=== PATIENT | male | born 1940 | race Caucasian/White ===

== ENCOUNTER 2020-03-11 21:40 | Emergency (ER) | payer MEDICARE ==
--- NOTE | 2020-03-11 22:10 | ED Physician Documentation ---
History of Present Illness - Stated complaint Stated Complaint: HIGH BP, VOMITING, FEVER - Chief complaint Chief Complaint: General - History obtained from History obtained from: Patient - History of Present Illness Timing: Yesterday Pain level now: 5 (low back) Improved by: rest Worsened by: movement, position, ambulation - Additonal information Additional information: c/o 2 days of fever, Tmax 102. nausea and vomiting last night. also has had LBP x few weeks but becoming severe x few days. the back pain is distinctly worse with movement and certain positions. no recent injury. denies weakness, numbness, bowel/bladder incontinence. Review of Systems Constitutional: reports: Fever, Chills, Fatigue, Sweats Cardiac: reports: Reviewed and negative Respiratory: reports: Reviewed and negative GI: reports: Nausea, Vomiting, Diarrhea, Bloody / black stool. denies: Abdominal Pain, Constipation : denies: Dysuria, Frequency, Hematuria Skin: denies: Rash Musculoskeletal: reports: Back pain Neurologic: denies: Focal weakness, Numbness, Headache PD PAST MEDICAL HISTORY - Past Medical History Past Medical History: No - Present Medications Home Medications: Ambulatory Orders Medication Instructions Recorded Confirmed Ciprofloxacin [Cipro] 500 mg PO Q12H #18 tablet 03/12/20 - Allergies Allergies/Adverse Reactions: Allergies Allergy/AdvReac Type Severity Reaction Status Date / Time No Known Drug Allergies Allergy Verified 03/11/20 21:47 - Living Situation Living Arrangement: reports: At home PD ED PE NORMAL - Vitals Vital signs reviewed: Yes - General General: Alert and oriented X 3, No acute distress, Well developed/nourished - HEENT HEENT: Moist mucous membranes - Neck Neck: Supple, no meningeal sign - Cardiac Cardiac: RRR, No murmur, No gallop, No rub - Respiratory Respiratory: No respiratory distress, Clear bilaterally - Abdomen Abdomen: Soft, Non tender - Back Back: No CVA TTP, No spinal TTP - Derm Derm: Normal color, Warm and dry, No rash - Neuro Neuro: Alert and oriented X 3, brand advocate 2-12 intact, No motor deficit, No sensory deficit, Normal speech Results - Vitals Vitals: Oxygen O2 Source Room air - Labs Labs: Laboratory Tests 03/11/20 03/11/20 03/11/20 22:55 22:55 22:55 WBC 8.1 RBC 4.98 Hgb 16.4 Hct 46.6 MCV 93.6 MCH 32.9 H MCHC 35.2 RDW 12.2 Plt Count 145 MPV 9.0 Neut # (Auto) 7.1 H Lymph # (Auto) 0.2 L [place] # (Auto) 0.7 Eos # (Auto) 0.1 Baso # (Auto) 0.0 Absolute Nucleated RBC 0.00 Nucleated RBC % 0.0 Sodium 140 Potassium 3.7 Chloride 102 Carbon Dioxide 27 Anion Gap 11.0 BUN 19 Creatinine 0.9 Estimated GFR (MDRD) 81 L Glucose 135 H Lactic Acid 1.5 Calcium 9.3 Total Bilirubin 0.8 AST 18 ALT 15 Alkaline Phosphatase 52 Total Protein 6.7 Albumin 4.0 Globulin 2.7 Albumin/Globulin Ratio 1.5 Lipase 31 Urine Color Urine Clarity Urine pH Ur Specific [place] Urine Protein Urine Glucose (UA) Urine Ketones Urine Occult Blood Urine Nitrite Urine Bilirubin Urine Urobilinogen Ur Leukocyte Esterase Urine RBC Urine WBC Ur Squamous Epith Cells Urine Bacteria Ur Microscopic Review Urine Culture Comments Nasal Adenovirus (PCR) Nasal B. parapertussis DNA (PCR) Nasal Coronavir 229E PCR Nasal Coronavir HKU1 PCR Nasal Coronavir NL63 PCR Nasal Coronavir OC43 PCR Nasal Enterovir/Rhinovir PCR Nasal Influenza B PCR Nasal Influenza A PCR Nasal Parainfluen 1 PCR Nasal Parainfluen 2 PCR Nasal Parainfluen 3 PCR Nasal Parainfluen 4 PCR Nasal RSV (PCR) Nasal B.pertussis DNA PCR Nasal C.pneumoniae (PCR) Rupesh Human Metapneumo PCR Nasal M.pneumoniae (PCR) Nasal SARS-CoV-2 (PCR) 03/11/20 03/11/20 22:58 23:11 WBC RBC Hgb Hct MCV MCH MCHC RDW Plt Count MPV Neut # (Auto) Lymph # (Auto) [place] # (Auto) Eos # (Auto) Baso # (Auto) Absolute Nucleated RBC Nucleated RBC % Sodium Potassium Chloride Carbon Dioxide Anion Gap BUN Creatinine Estimated GFR (MDRD) Glucose Lactic Acid Calcium Total Bilirubin AST ALT Alkaline Phosphatase Total Protein Albumin Globulin Albumin/Globulin Ratio Lipase Urine Color YELLOW Urine Clarity CLEAR Urine pH >=9.0 H Ur Specific [place] 1.015 Urine Protein NEGATIVE Urine Glucose (UA) NEGATIVE Urine Ketones TRACE Urine Occult Blood MODERATE H Urine Nitrite NEGATIVE Urine Bilirubin NEGATIVE Urine Urobilinogen 0.2 (NORMAL) Ur Leukocyte Esterase NEGATIVE Urine RBC 6-10 H Urine WBC 0-3 Ur Squamous Epith Cells NONE SEEN Urine Bacteria None Seen Ur Microscopic Review INDICATED Urine Culture Comments NOT INDICATED Nasal Adenovirus (PCR) NOT DETECTED Nasal B. parapertussis DNA (PCR) NOT DETECTED Nasal Coronavir 229E PCR NOT DETECTED Nasal Coronavir HKU1 PCR NOT DETECTED Nasal Coronavir NL63 PCR NOT DETECTED Nasal Coronavir OC43 PCR NOT DETECTED Nasal Enterovir/Rhinovir PCR NOT DETECTED Nasal Influenza B PCR NOT DETECTED Nasal Influenza A PCR NOT DETECTED Nasal Parainfluen 1 PCR NOT DETECTED Nasal Parainfluen 2 PCR NOT DETECTED Nasal Parainfluen 3 PCR NOT DETECTED Nasal Parainfluen 4 PCR NOT DETECTED Nasal RSV (PCR) NOT DETECTED Nasal B.pertussis DNA PCR NOT DETECTED Nasal C.pneumoniae (PCR) NOT DETECTED Rupesh Human Metapneumo PCR NOT DETECTED Nasal M.pneumoniae (PCR) NOT DETECTED Nasal SARS-CoV-2 (PCR) NOT DETECTED - Rads (name of study) CT A/P with IV contrast Radiology: Prelim report reviewed, See rad report PD MEDICAL DECISION MAKING - ED course Complexity details: reviewed results, re-evaluated patient, considered differential, d/w patient ED course: on reevaluation, patient is in NAD and reports feeling much better after IV NS and IV toradol; he defervesced, as well. his lab tests are unremarkable except for small hematuria on UA. CT A/P s/o nonspecific enteritis. given his fever and reported small amount of blood in stool along with mild diarrhea, will rx cipro x 5 days for possible bacterial etiology of his enteritis Departure - Departure Disposition: 01 Home, Self Care Clinical Impression: Enteritis Condition: Good Instructions: ED Diarrhea Bacterial Follow-Up: Estephanie Cooney MD [Primary Care Provider] - Prescriptions: Ciprofloxacin [Cipro] 500 mg PO Q12H #18 tablet Discharge Date/Time: 03/12/20 01:21
[2020-03-11] MEDS ORDERED: SODIUM CHLORIDE 0.9% 1,000 ML IV STA (22:50)
[2020-03-11] MEDS ORDERED: KETOROLAC 30 MG/ML VIAL IVP STA (22:53)
[2020-03-11 23:05] LABS: BASOPHILS % (AUTO) 0.5 %; EOSINOPHILS # (AUTO) 0.1 10^3/uL (0.0-0.7); EOSINOPHILS % (AUTO) 0.9 %; HGB - HEMOGLOBIN 16.4 g/dL (14.0-18.0); LYMPHOCYTES # (AUTO) 0.2 10^3/uL (1.5-3.5); LYMPHOCYTES % (AUTO) 2.8 %; MEAN CORPUSCULAR HEMOGLOBIN 32.9 pg (27.0-31.0); MEAN CORPUSCULAR HGB CONC 35.2 g/dL (32.0-36.0); MEAN CORPUSCULAR VOLUME 93.6 fL (80.0-94.0); MONOCYTES # (AUTO) 0.7 10^3/uL (0.0-1.0); MONOCYTES % (AUTO) 8.1 %; NEUTROPHILS # (AUTO) 7.1 10^3/uL (1.5-6.6); NEUTROPHILS % (AUTO) 87.5 %; PLT - PLATELET COUNT 145 10^3/uL (130-450); RED BLOOD COUNT 4.98 10^6/uL (4.70-6.10); RED CELL DISTRIBUTION WIDTH 12.2 % (12.0-15.0); WHITE BLOOD COUNT 8.1 x10^3/uL (4.8-10.8)
[2020-03-11] MEDS ORDERED: IOVERSOL 320 100 ML VIAL IVP ONE ×2 (23:11→23:45)
[2020-03-11 23:18] LABS: ALBUMIN/GLOBULIN RATIO 1.5 (1.0-2.2); BILIRUBIN,TOTAL 0.8 mg/dL (0.2-1.0); CALCIUM 9.3 mg/dL (8.5-10.3); CREATININE 0.9 mg/dL (0.6-1.2); TOTAL PROTEIN 6.7 g/dL (6.7-8.2)
[2020-03-11 23:48] LABS: BILIRUBIN,URINE NEGATIVE (NEGATIVE); GLUCOSE, URINE (UA) NEGATIVE (NEGATIVE); KETONES,URINE (UA) TRACE mg/dL (NEGATIVE); LEUKOCYTE ESTERASE, URINE NEGATIVE (NEGATIVE); NITRITE,URINE NEGATIVE (NEGATIVE); OCCULT BLOOD,URINE MODERATE (NEGATIVE); PH,URINE >=9.0 PH (5.0-7.5); PROTEIN,URINE NEGATIVE (NEGATIVE); UROBILINOGEN,URINE 0.2 (NORMAL) E.U./dL (NORMAL)
[2020-03-11 23:53] LABS: CLARITY,URINE CLEAR (CLEAR)
[2020-03-11 23:56] LABS: BACTERIA,URINE None Seen /HPF (None Seen); SQUAMOUS EPITHELIAL CELL,UR NONE SEEN (<= Few)
[2020-03-12 00:03] LABS: C. PNEUMONIAE- RESP PCR PANEL NOT DETECTED
[2020-03-12 00:28] VITALS: BP 140/97
[2020-03-12] MEDS ORDERED: CIPROFLOXACIN 250 MG TABLET PO STA (00:53)
--- NOTE | 2020-03-12 08:29 | CT Report ---
PROCEDURE: Abdomen/Pelvis W INDICATIONS: fever, low back pain CONTRAST: IV CONTRAST: Optiray 320 ml: 100 PO CONTRAST: *NO PO CONTRAST TECHNIQUE: After the administration of intravenous contrast, 5 mm thick sections acquired from the diaphragms to the symphysis. 5 mm thick coronal and sagittal reformats were acquired. For radiation dose reducti on, the following was used: automated exposure control, adjustment of mA and/or kV according to heraclio ent size. COMPARISON: None. FINDINGS: Image quality: Excellent. ABDOMEN: Lung bases: Lung bases are clear. Heart size is normal. Solid organs: Liver and spleen are normal in size and enhancement. Gallbladder is unremarkable Jason iary system is non dilated. Pancreas enhances normally. No adrenal nodules. Kidneys demonstrate no rmal size and enhancement, without hydronephrosis. 6 mm nonobstructing right renal stone. Peritoneum and bowel: Bowel loops demonstrate normal wall thickness and caliber. No free fluid or a ir. Question mild small bowel wall thickening in the right mid abdomen. Nodes and vessels: No retroperitoneal or mesenteric adenopathy by size criteria. Aorta and inferior vena cava are normal in size. Miscellaneous: No ventral hernias. PELVIS: Genitourinary: Bladder wall thickness is normal. Radical prostatectomy. Miscellaneous: No inguinal hernias or adenopathy. Bones: No suspicious bony lesions. No vertebral body compression fractures. Extensive lumbar degen erative change. Canal stenosis at L1-L2, L3-L4, and L4-L5. There is severe right lateral recess steno sis at L4-L5. IMPRESSION: 1. Question mild small bowel enteritis. 2. Nonobstructing right renal stone. 3. Remote radical prostatectomy with no evidence of metastatic disease. 4. Multilevel lumbar canal stenosis. A preliminary report with the above findings was provided at the time of the study by [facility] [employer]. Reviewed by: Clint Salas MD on 03/12/2020 8:27 AM PST Approved by: Clint Salas MD on 03/12/2020 8:27 AM PST Station ID: [id number]
== END 2020-03-12 01:21 | disposition home or self-care (01) ==
LOC: ED 21:40
DX: K52.9 Noninfective gastroenteritis and colitis, unspecified (principal); R31.9 Hematuria, unspecified; M48.061 Spinal stenosis, lumbar region without neurogenic claudication; Z20.822 Contact with and (suspected) exposure to COVID-19
CPT/HCPCS: 36415; 74177; 80053; 81001; 83605; 83690; 85025; 87631; 96361; 96374; 99284; A9270; Q9967; 0202U; 81003; 87086

== ENCOUNTER 2020-04-10 09:16 | Outpatient (CLI) | payer MEDICARE ==
[2020-04-10 15:25] LABS: ALBUMIN 3.8 g/dL (3.2-5.5); ALBUMIN/GLOBULIN RATIO 1.5 (1.0-2.2); BILIRUBIN,TOTAL 0.8 mg/dL (0.2-1.0); CALCIUM 9.2 mg/dL (8.5-10.3); CREATININE 0.8 mg/dL (0.6-1.2); POTASSIUM 3.8 mmol/L (3.5-5.0); TOTAL PROTEIN 6.3 g/dL (6.7-8.2)
[2020-04-13 19:36] LABS: HDL LARGE 3397 nmol/L (>6729); LDL MEDIUM 365 nmol/L (<215); LDL PARTICLE NUMBER 1339 nmol/L (<1138); LDL PATTERN B Pattern (A); LDL SMALL 306 nmol/L (<142)
== END 2020-04-10 09:17 | disposition home or self-care (01) ==
LOC: LAB.S 09:16
PROVIDERS: ATTEND Internal Medicine Cardiovascular Disease
DX: E78.5 Hyperlipidemia, unspecified (principal)
CPT/HCPCS: 36415; 80053; 80061; 81599; 82550; 83704

== ENCOUNTER 2020-05-10 07:12 | Outpatient (CLI) | payer MEDICARE | END 2020-05-10 07:13 | disposition home or self-care (01) | LOC: LAB.S 07:12 | PROVIDERS: ATTEND Internal Medicine Cardiovascular Disease | DX: Z01.812 Encounter for preprocedural laboratory examination (principal); Z20.822 Contact with and (suspected) exposure to COVID-19 ==

== ENCOUNTER 2020-06-17 08:51 | Outpatient (CLI) | payer MEDICARE ==
[2020-06-17 15:06] LABS: BASOPHILS # (AUTO) 0.1 10^3/uL (0.0-0.1); BASOPHILS % (AUTO) 1.4 %; EOSINOPHILS # (AUTO) 0.3 10^3/uL (0.0-0.7); EOSINOPHILS % (AUTO) 4.5 %; HCT - HEMATOCRIT 45.2 % (42.0-52.0); HGB - HEMOGLOBIN 14.6 g/dL (14.0-18.0); LYMPHOCYTES # (AUTO) 1.9 10^3/uL (1.5-3.5); LYMPHOCYTES % (AUTO) 28.4 %; MEAN CORPUSCULAR HEMOGLOBIN 31.1 pg (27.0-31.0); MEAN CORPUSCULAR HGB CONC 32.3 g/dL (32.0-36.0); MEAN CORPUSCULAR VOLUME 96.2 fL (80.0-94.0); MEAN PLATELET VOLUME 9.4 fL (7.4-11.4); MONOCYTES # (AUTO) 0.5 10^3/uL (0.0-1.0); MONOCYTES % (AUTO) 7.7 %; NEUTROPHILS # (AUTO) 3.8 10^3/uL (1.5-6.6); NEUTROPHILS % (AUTO) 57.8 %; PLT - PLATELET COUNT 184 10^3/uL (130-450); RED CELL DISTRIBUTION WIDTH 13.1 % (12.0-15.0); WHITE BLOOD COUNT 6.5 x10^3/uL (4.8-10.8)
[2020-06-17 16:12] LABS: ALBUMIN 4.2 g/dL (3.2-5.5); ALBUMIN/GLOBULIN RATIO 1.8 (1.0-2.2); BILIRUBIN,TOTAL 0.7 mg/dL (0.2-1.0); CALCIUM 9.4 mg/dL (8.5-10.3); CREATININE 0.8 mg/dL (0.6-1.2); POTASSIUM 3.7 mmol/L (3.5-5.0); TOTAL PROTEIN 6.6 g/dL (6.7-8.2)
== END 2020-06-17 08:52 | disposition home or self-care (01) ==
LOC: LAB.S 08:51
PROVIDERS: ATTEND Internal Medicine
DX: I10 Essential (primary) hypertension (principal); Z12.5 Encounter for screening for malignant neoplasm of prostate
CPT/HCPCS: 36415; 80053; 85025; G0103; 84153

== ENCOUNTER 2020-10-30 09:22 | Outpatient (CLI) | payer MEDICARE ==
[2020-10-30 16:13] LABS: ALBUMIN/GLOBULIN RATIO 1.7 (1.0-2.2); BILIRUBIN,TOTAL 0.9 mg/dL (0.2-1.0); CALCIUM 9.3 mg/dL (8.5-10.3); CREATININE 0.8 mg/dL (0.6-1.2); TOTAL PROTEIN 6.4 g/dL (6.7-8.2)
[2020-11-03 18:12] LABS: HDL LARGE 4954 nmol/L (>6729); LDL MEDIUM 186 nmol/L (<215); LDL PARTICLE NUMBER 897 nmol/L (<1138); LDL PATTERN B Pattern (A); LDL PEAK SIZE 213.9 Angstrom (>222.9); LDL SMALL 172 nmol/L (<142)
== END 2020-10-30 09:23 | disposition home or self-care (01) ==
LOC: LAB.S 09:22
PROVIDERS: ATTEND Internal Medicine Cardiovascular Disease
DX: E78.5 Hyperlipidemia, unspecified (principal)
CPT/HCPCS: 36415; 80053; 80061; 81599; 82550; 83704

== ENCOUNTER 2021-04-28 07:19 | Outpatient (CLI) | payer MEDICARE ==
[2021-04-28 15:07] LABS: ALBUMIN 4.1 g/dL (3.2-5.5); ALBUMIN/GLOBULIN RATIO 1.7 (1.0-2.2); BILIRUBIN,TOTAL 0.8 mg/dL (0.2-1.0); CALCIUM 9.5 mg/dL (8.5-10.3); CREATININE 0.8 mg/dL (0.6-1.2); POTASSIUM 4.2 mmol/L (3.5-5.0); TOTAL PROTEIN 6.5 g/dL (6.7-8.2)
[2021-05-05 20:35] LABS: HDL LARGE 5542 nmol/L (>6729); LDL MEDIUM 249 nmol/L (<215); LDL PARTICLE NUMBER 1143 nmol/L (<1138); LDL PATTERN A Pattern (A); LDL PEAK SIZE 217.4 Angstrom (>222.9); LDL SMALL 218 nmol/L (<142)
== END 2021-04-28 07:20 | disposition home or self-care (01) ==
LOC: LAB.S 07:19
PROVIDERS: ATTEND Internal Medicine Cardiovascular Disease
DX: E78.5 Hyperlipidemia, unspecified (principal)
CPT/HCPCS: 36415; 80053; 80061; 81599; 82550; 83704

== ENCOUNTER 2022-04-14 10:54 | Outpatient (CLI) | payer MEDICARE | END 2022-04-14 10:55 | disposition home or self-care (01) | LOC: LAB.S 10:54 | PROVIDERS: ATTEND Internal Medicine Cardiovascular Disease | DX: I25.10 Atherosclerotic heart disease of native coronary artery without angina pectoris (principal) | CPT/HCPCS: 36415; 82607 ==

== ENCOUNTER 2022-05-02 08:35 | Outpatient (CLI) | payer MEDICARE ==
[2022-05-02 15:28] LABS: ALBUMIN/GLOBULIN RATIO 1.5 (1.0-2.2); BILIRUBIN,TOTAL 0.8 mg/dL (0.2-1.0); CALCIUM 9.2 mg/dL (8.5-10.3); CREATININE 0.7 mg/dL (0.6-1.2); TOTAL PROTEIN 6.7 g/dL (6.7-8.2)
[2022-05-04 07:10] LABS: HDL-P (TOTAL) 38.2 umol/L (>=30.5); LDL SIZE 20.1 nm (>20.5); LDL-P 736 nmol/L (<1000); LP-INSULIN RESISTANCE SCORE 31 (<=45); SMALL LDL-P 400 nmol/L (<=527)
== END 2022-05-02 08:36 | disposition home or self-care (01) ==
LOC: LAB.S 08:35
DX: E78.5 Hyperlipidemia, unspecified (principal)
CPT/HCPCS: 36415; 80053; 82550; 83704

== ENCOUNTER 2023-11-13 08:00 | Outpatient (CLI) | payer MEDICARE ==
--- NOTE | 2023-11-13 14:31 | XRAY Report ---
PROCEDURE: Hand 3+V RT INDICATIONS: PAIN IN RIGHT HAND TECHNIQUE: 3 views of the hand(s) acquired. COMPARISON: None. FINDINGS: Bones: No fractures or dislocations. Advanced degenerative arthritis at the first carpometacarpal christopher int with joint space obliteration and large osteophytes and lateral subluxation of the first metacarp al relative to the first carpal bone. There is also degenerative arthritis at the thumb MCP and IP christopher ints. No suspicious bony lesions. Soft tissues: No suspicious soft tissue calcifications or masses. 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 No acute bony abnormality. Reviewed by: Clint Salas MD on 11/13/2023 2:30 PM PDT Approved by: Clint Salas MD on 11/13/2023 2:30 PM PDT Station ID: [id number]
== END 2023-11-13 23:59 | disposition home or self-care (01) ==
LOC: DI.S 08:00
PROVIDERS: ATTEND Physician Assistant
DX: M79.641 Pain in right hand (principal); M18.9 Osteoarthritis of first carpometacarpal joint, unspecified

== ENCOUNTER 2024-01-25 07:49 | Observation (INO) ==
[2024-01-25 08:17] LABS: BASOPHILS # (AUTO) 0.1 10^3/uL (0.0-0.1); BASOPHILS % (AUTO) 0.3 %; EOSINOPHILS % (AUTO) 0.1 %; HCT - HEMATOCRIT 47.4 % (42.0-52.0); LYMPHOCYTES # (AUTO) 0.5 10^3/uL (1.5-3.5); LYMPHOCYTES % (AUTO) 3.3 %; MEAN CORPUSCULAR HEMOGLOBIN 30.8 pg (27.0-31.0); MEAN CORPUSCULAR HGB CONC 33.8 g/dL (32.0-36.0); MEAN CORPUSCULAR VOLUME 91.3 fL (80.0-94.0); MEAN PLATELET VOLUME 8.5 fL (7.4-11.4); MONOCYTES # (AUTO) 0.7 10^3/uL (0.0-1.0); MONOCYTES % (AUTO) 4.5 %; NEUTROPHILS # (AUTO) 14.4 10^3/uL (1.5-6.6); NEUTROPHILS % (AUTO) 91.5 %; PLT - PLATELET COUNT 159 10^3/uL (130-450); RED BLOOD COUNT 5.19 10^6/uL (4.70-6.10); RED CELL DISTRIBUTION WIDTH 12.7 % (12.0-15.0); WHITE BLOOD COUNT 15.7 x10^3/uL (4.8-10.8)
[2024-01-25] MEDS: ONDANSETRON 4 MG/2 ML VIAL IVP STA (08:24)
--- NOTE | 2024-01-25 08:37 | ED Physician Documentation ---
History of Present Illness Stated complaint Stated Complaint: ABD PAIN Chief complaint Chief Complaint: Abd Pain History obtained from History obtained from: Patient and Family History of Present Illness Pain level max: 8 Pain level now: 8 Additonal information Additional information: Patient is an 83-year-old male who presents to the emergency department complaining of a sudden onset of abdominal pain approximately 5 hours ago. Has had vomiting since that time. No diarrhea or constipation. No other family members are sick at home. Has not had similar symptoms previously. states that the pain is severe at home. He has a history of prostate removal several years ago. No blood in the emesis. No fevers. No chills. Had been on telmisartan for hypertension but has been off of that. Did not receive any treatment with EMS en route. Meds/Allgy Home Medications Ambulatory Orders Medication Instructions Recorded Confirmed cyanocobalamin (vitamin B-12) 1,000 mcg PO MOWEFR 01/25/24 01/25/24 1,000 mcg tablet Allergies Allergies Allergy/AdvReac Type Severity Reaction Status Date / Time atenolol AdvReac Severe Edema Verified 01/25/24 09:06 [facility] Social History Social History (Updated 01/25/24 @ 14:46 by Dipika Marcus RN) Smoking Status: Never smoker Second hand tobacco smoke exposure: No Do you dip or chew tobacco?: No Do you vape?: No Living arrangement: At home Marital Status: Living Condition: With spouse/s.o. Relationship: Level: Independent Do you feel safe in your home environment?: Yes Suffered physical, verbal, emotional, or financial abuse?: No ETOH Use: None Substance Use: denies use Exam Constitutional normal general appearance and no apparent distress HENMT oropharynx normal moist mucous membranes Eyes PERRL Neck/C-Spine visual inspection normal Respiratory breath sounds equal bilaterally, normal respiratory effort and clear to auscultation bilaterally Cardiovascular normal heart rate noted and regular rhythm noted Gastrointestinal abdomen normal to inspection, nontender to palpation and nondistended TTP epigastric no peritoneal signs Genitourinary no CVA tenderness Extremities no edema Neurology speech normal Psychiatry mental status grossly normal and oriented x3 Skin skin color normal Results Vitals Vitals: Vital Signs - 24 hr 01/25/24 07:57 01/25/24 08:44 01/25/24 10:01 Temperature 36.5 C Temperature Source Temporal Artery Scan Pulse Rate 72 69 Respiratory Rate 16 18 Blood Pressure 184/111 H 153/86 H O2 Saturation 96 97 O2 Source Room air Pain Intensity 6 9 01/25/24 10:55 Temperature Temperature Source Pulse Rate Respiratory Rate Blood Pressure O2 Saturation O2 Source Pain Intensity 0 Oxygen O2 Source Room air Labs Labs: Laboratory Tests 01/25/24 08:12 WBC 15.7 H RBC 5.19 Hgb 16.0 Hct 47.4 MCV 91.3 MCH 30.8 MCHC 33.8 RDW 12.7 Plt Count 159 MPV 8.5 Neut # (Auto) 14.4 H Lymph # (Auto) 0.5 L [place] # (Auto) 0.7 Eos # (Auto) 0.0 Baso # (Auto) 0.1 Absolute Nucleated RBC 0.00 Nucleated RBC % 0.0 Sodium 136 Potassium 4.4 Chloride 102 Carbon Dioxide 28 Anion Gap 6.0 BUN 22 H Creatinine 0.8 Estimated GFR (MDRD) 92 Glucose 142 H Calcium 9.5 Total Bilirubin 0.8 AST 15 ALT 14 Alkaline Phosphatase 53 Total Protein 6.1 L Albumin 3.9 Globulin 2.2 Albumin/Globulin Ratio 1.8 Triglycerides 93 Lipase > 6000 H Rads (name of study) CT abd/pelvis: Relevant Findings:: Final report received PD Medical Decision Making ED course Complexity details: reviewed results, considered differential and d/w patient ED course: Patient is an 83-year-old male who presents to the emergency department with abdominal pain and vomiting today. Feels much better after Zofran and Dilaudid. CT scan and labs are consistent with pancreatitis. He states he does not drink alcohol. Is off most of his medications but does take a list of supplements. There is no evidence of biliary disease on CT scan. We will admit the patient for pancreatitis, bowel rest, pain control. Discussed the case with the hospitalist, Dr. Griffin who accepts. This document was made in part using voice recognition software. While efforts are made to proofread this document, sound alike and grammatical errors may occur. Discharge Plan Discharge Patient Disposition: 66 [facility] DC/Xfer Clinical Impression: Acute pancreatitis Qualifiers: Pancreatitis type: unspecified pancreatitis type Acute pancreatitis complication: no infection or necrosis Qualified Code(s): K85.90 - Acute pancreatitis without necrosis or infection, unspecified Interventions: ED Admission Assessment Last Done: 01/25/24 11:00
[2024-01-25 08:39] LABS: ALBUMIN 3.9 g/dL (3.2-5.5); ALBUMIN/GLOBULIN RATIO 1.8 (1.0-2.2); ALKALINE PHOSPHATASE 53 IU/L (42-121); ALT ALANINE AMINOTRANSFERASE 14 IU/L (10-60); AST ASPARTATE AMINOTRANSFERASE 15 IU/L (10-42); BILIRUBIN,TOTAL 0.8 mg/dL (0.2-1.0); BUN - BLOOD UREA NITROGEN 22 mg/dL (6-20); CALCIUM 9.5 mg/dL (8.5-10.3); CARBON DIOXIDE - CO2 28 mmol/L (21-32); CHLORIDE 102 mmol/L (101-111); CREATININE 0.8 mg/dL (0.6-1.3); GFR - MDRD 92 (>89); GLUCOSE 142 mg/dL (74-104); POTASSIUM 4.4 mmol/L (3.5-4.5); SODIUM 136 mmol/L (135-145); TOTAL PROTEIN 6.1 g/dL (6.4-8.9)
[2024-01-25] MEDS: HYDROmorphone 1 MG/ML CARPUJECT IVP STA (08:44)
[2024-01-25] MEDS: SODIUM CHLORIDE 0.9% 1,000 ML IV STA (08:48)
[2024-01-25 08:51] LABS: LIPASE > 6000 U/L (11-82)
[2024-01-25] MEDS ORDERED: iohexoL-300 100 ML VIAL ONE (09:00)
--- NOTE | 2024-01-25 09:47 | CT Report ---
PROCEDURE: CT Abdomen/Pelvis W INDICATIONS: diffuse abd pain, vomiting CONTRAST: omni 300, 100 TECHNIQUE: After the administration of intravenous contrast, a CT scan of the abdomen and pelvis was performed. Images were recorded and evaluated at appropriate window settings. Reformats: coronal and sagittal. F or radiation dose reduction, the following was used: automated exposure control, adjustment of mA and /or kV according to patient size. COMPARISON: 03/11/2020 FINDINGS: Image quality: Diagnostic. Lower chest: Unremarkable. Liver: No solid mass. Gallbladder: No radiopaque stones or wall thickening. Biliary tree: No intrahepatic or extrahepatic dilation, accounting for age. Spleen: No splenomegaly. Pancreas: Edematous pancreas, with homogeneous enhancement. No ductal dilation. No acute peripancreat ic collection. Adrenals: No adrenal nodule. Kidneys and ureters: No hydronephrosis. No renal cystic lesion which requires follow up. No solid mas s. 6 mm nonobstructing nephrolithiasis. Stomach, bowel and peritoneum: No gastric or small bowel dilation. No abnormal wall thickening. Small volume ascites. Diverticulosis without evidence of diverticulitis. Lymph nodes: No central or retroperitoneal adenopathy. Vessels: No infrarenal aortic aneurysm. Patent portal vein. PELVIS Reproductive organs: Unremarkable. Bladder: No abnormal wall thickening, accounting for underdistention. Pelvic lymph nodes: No pelvic adenopathy by size criteria. Bones: No aggressive osseous abnormality. Degenerative changes of the spine. Other: No significant ventral or inguinal hernia. IMPRESSION: Acute interstitial pancreatitis without vascular complication or acute peripancreatic collection. No gallstones or biliary dilation to suggest choledocholithiasis. Reviewed by: Marcus Beach MD on 01/25/2024 9:46 AM [facility] Approved by: Marcus Beach MD on 01/25/2024 9:46 AM PST Station ID: [id number]
[2024-01-25] MEDS: iohexoL-300 100 ML VIAL IVP ONE (10:18)
--- NOTE | 2024-01-25 10:35 | HISTORY & PHYSICAL EXAMINATION ---
Chief Complaint Chief Complaint Chief Complaint: Abdominal pain History of Present Illness History Obtained From History obtained from: Patient and at bedside Exam Limitations: none History of Present Illness HPI Comment/Other: 83-year-old male who presented to the ED with sudden onset of abdominal pain starting at 1 AM today. He has had nausea and vomiting, but denies diarrhea and constipation. Denies fever, chills, chest pain, palpitations. He states that his last p.o. intake was last night at approximately 8 PM. He had been on telmisartan for hypertension, but has been off that and has been attempting to manage his hypertension with diet and exercise. Denies alcohol use In the ER, His lipase was noted to be greater than 6000. CT abdomen/pelvis was performed showed acute interstitial pancreatitis without vascular complication or acute peripancreatic collection. No gallstones or biliary dilation to suggest choledocholithiasis. Hospitalist was contacted for observation as he has acute pancreatitis requiring IV pain management Meds/Allgy Home Medications Ambulatory Orders Medication Instructions Recorded Confirmed ciprofloxacin HCl 250 mg tablet 500 mg (2 x 250 mg) PO Q12H #18 03/12/20 tabs Allergies Allergies Allergy/AdvReac Type Severity Reaction Status Date / Time atenolol AdvReac Severe Edema Verified 01/25/24 09:06 [facility] Social History Social History Smoking Status: Never smoker Living arrangement: At home Relationship: Do you feel safe in your home environment?: Yes Suffered physical, verbal, emotional, or financial abuse?: No Review of Systems Status of ROS: 10 or more systems reviewed and unremarkable except as noted in history and below Constitutional Denies: Fever or Chills Eyes Denies: Pain Cardiovascular Denies: Irregular heart rate, chest pain, palpitations or shortness of breath with exertion Respiratory Denies: Shortness of breath or Cough Gastrointestinal Reports: Abdominal pain (Abdominal pain since 1 AM today. Improved after dose of Dilaudid), Nausea and Vomiting Genitourinary Denies: Painful urination Musculoskeletal Denies: Back pain Integumentary/Breast Reports: Rash (Reports rash on his back that has been going on for a while related to stre) Neurological Denies: Headache or General weakness Exam Constitutional normal general appearance and average body habitus HENMT normocephalic and head/scalp atraumatic Eyes PERRL Neck/C-Spine visual inspection normal Lymph no lymphadenopathy noted Chest inspection of chest normal Respiratory breath sounds equal bilaterally Cardiovascular normal heart rate noted and regular rhythm noted Gastrointestinal abdomen normal to inspection, abdomen soft to palpation and nontender to palpation Genitourinary no CVA tenderness Extremities normal to inspection and normal to palpation 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 for now, vegan diet when he is ready for diet per his request Lipase in a.m. Qualifiers: Acute pancreatitis complication: no infection or necrosis Pancreatitis type: unspecified pancreatitis type Qualified Code(s): K85.90 - Acute pancreatitis without necrosis or infection, unspecified (2) Hypertension: Plan: He has history of hypertension, was on ARB but this was stopped 3 weeks ago so that he could attempt to control it with dietary changes Will focus on pain management for now, if he still has high blood pressure after his pain is well-controlled then we can discuss antihypertensives Plan Placed in observation He wishes to remain full code His is his surrogate decision maker His PCP is Иван Blairett Lab Results Lab results reviewed: Yes 01/25/24 08:12 01/25/24 08:12 Diagnostic Imaging Results Diagnostic Imaging Results: positive Final report reviewed Diagnostic Imaging Results Comments: CT abdomen/pelvis with pancreatitis Core Measures Anticipated LOS I expect patient to be DC'd or transferred within 96 hours.: Yes Issues Hospital Issues and Management Plan: PancreatitisIVF, pain control DVT/VTE - Prophylaxis VTE/DVT Device ordered at admit?: No VTE/DVT Prophylaxis med ordered at admit?: Yes
[2024-01-25] MEDS ORDERED: SODIUM CHLORIDE FLUSH 0.9% 10 ML SYRINGE IVP PRN (11:28)
--- NOTE | 2024-01-25 12:37 | PHARMACY PROGRESS NOTE ---
Best Possible Medication History Admit Date and Time: 01/25/24 [id number] Home Medications Medication Instructions Recorded Confirmed Type cyanocobalamin (vitamin B-12) 1,000 mcg PO MOWEFR 01/25/24 01/25/24 History 1,000 mcg tablet Processed by: Pharmacy Medications reviewed in ED?: No Medication History completed: Yes Patient Interview: Completed Secondary Source(s): Spouse/Significant other [facility] Statement: As the person ultimately responsible for medication therapy, providers are able to order a medication from an existing home medication list in [facility] via the "Reconcile Routine" prior to Confirmation of that medication by user support analyst. Such practice is discouraged except when the physician, in their clinical judgment, deems that a medical need exists for a medication without regard to previous use.
[2024-01-25] MEDS: HYDROCORTISONE 1% CREAM 28 GM TUBE TOP SCH (14:08)
[2024-01-25] MEDS: SODIUM CHLORIDE FLUSH 0.9% 10 ML SYRINGE IVP SCH (17:44)
[2024-01-25] MEDS: HYDROmorphone 0.5 MG/0.5 ML SYRINGE IVP PRN (18:40)
[2024-01-26] MEDS: ACETAMINOPHEN 325 MG TABLET PO PRN (00:53)
[2024-01-26 06:46] LABS: BASOPHILS % (AUTO) 0.2 %; EOSINOPHILS # (AUTO) 0.1 10^3/uL (0.0-0.7); EOSINOPHILS % (AUTO) 0.4 %; HGB - HEMOGLOBIN 15.4 g/dL (14.0-18.0); LYMPHOCYTES # (AUTO) 0.9 10^3/uL (1.5-3.5); LYMPHOCYTES % (AUTO) 5.1 %; MEAN CORPUSCULAR HEMOGLOBIN 31.4 pg (27.0-31.0); MEAN CORPUSCULAR HGB CONC 34.2 g/dL (32.0-36.0); MEAN CORPUSCULAR VOLUME 91.6 fL (80.0-94.0); MEAN PLATELET VOLUME 8.6 fL (7.4-11.4); MONOCYTES # (AUTO) 1.1 10^3/uL (0.0-1.0); MONOCYTES % (AUTO) 6.9 %; NEUTROPHILS # (AUTO) 14.4 10^3/uL (1.5-6.6); NEUTROPHILS % (AUTO) 86.9 %; PLT - PLATELET COUNT 132 10^3/uL (130-450); RED BLOOD COUNT 4.91 10^6/uL (4.70-6.10); RED CELL DISTRIBUTION WIDTH 12.9 % (12.0-15.0); WHITE BLOOD COUNT 16.5 x10^3/uL (4.8-10.8)
[2024-01-26 07:02] LABS: CALCIUM 8.8 mg/dL (8.5-10.3); CREATININE 0.7 mg/dL (0.6-1.3); POTASSIUM 3.8 mmol/L (3.5-4.5)
[2024-01-26] MEDS ORDERED: LACTATED RINGERS 2,000 ML IV ONE (07:46)
[2024-01-26] MEDS: ENOXAPARIN 40 MG/0.4 ML SYRINGE SUBQ SCH (08:13)
[2024-01-26] MEDS: LACTATED RINGERS 1,000 ML IV ONE (08:26)
--- NOTE | 2024-01-26 08:48 | Discharge Summary ---
Discharge Summary Admit Date: 01/25/24 Discharge Date: 01/26/24 Discharging Provider: Sherman Josue NP Primary Care Provider: Иван Delacruz Code Status: Attempt Resuscitation DIAGNOSES Admission Diagnoses: Acute pancreatitis Hypertension Discharge Diagnoses with Status of Each Condition: Acute pancreatitisresolved Hypertensionchronic HPI History of Present Illness: 83-year-old male with PMH significant for hypertension now managed with diet and exercise presented with gnawing upper abdominal pain x 8 hours. He denied fever, chills, chest pain, dyspnea. He does not drink, denies NSAID/aspirin use. In the ER, workup was significant for a lipase that was too high to read with a normal triglyceride level. CT abdomen/pelvis was performed which showed pancreatitis without any biliary or vascular cause. CT abdomen/pelvis was performed which showed pancreatitis without biliary or vascular cause. Hospitalist was contacted for admission for acute pancreatitis HOSPITAL COURSE Hospital Course: He was placed in observation and aggressive IV fluid resuscitation was initiated. This morning, he reports no pain and is ready to eat. His lipase came down significantly from greater than 6000 to 944. He has been trialed on full liquid diet without complication and is ready to discharge home. Given his normal triglyceride level and CT abdomen/pelvis without vascular or biliary cause, suspect that this is idiopathic pancreatitis ALLERGIES Allergies Allergy/AdvReac Type Severity Reaction Status Date / Time atenolol AdvReac Severe Edema Verified 01/25/24 09:06 MEDICATIONS Ambulatory Orders Medication Instructions Recorded Confirmed cyanocobalamin (vitamin B-12) 1,000 mcg PO MOWEFR 01/25/24 01/25/24 1,000 mcg tablet hydrocortisone-aloe vera 1 % 1 applic topical BID 30 days #14.2 01/26/24 topical cream grams PHYSICAL EXAM AT DISCHARGE General Appearance: positive No acute distress and Alert Eyes Bilateral: positive Normal inspection ENT: positive No signs of dehydration Neck: positive No JVD Respiratory: positive Breath sounds nml Cardiovascular: positive Regular rate & rhythm Peripheral Pulses: positive 2+ Abdomen: positive Non-tender Back: positive Other (Rash on his back which has been ongoing. He states he has been to Dermatology and they have said that this is stress related) Skin: positive Color nml Extremities: positive Non-tender Neurologic/Psychiatric: positive Oriented x3 LABS 01/26/24 06:39 01/26/24 06:39 DIAGNOSTIC IMAGING Diagnostic Imaging Results: Final report reviewed Diagnostic Imaging Results Comments: CT abdomen/pelvis with pancreatitis SEPSIS Current Stage of Sepsis: Ruled out FOLLOW UP Follow Up: With PCP TIME SPENT Time Spent in Discharge (Minutes): 25 Discharge Plan Discharge Patient Disposition: 01 Home, Self Care Medically Cleared Date:: 01/26/24 Prescriptions: New hydrocortisone-aloe vera 1 % Cream 1 applic topical BID 30 Days Qty: 14.2 0RF Continued cyanocobalamin (vitamin B-12) 1,000 mcg tablet 1,000 mcg PO MOWEFR Diet: Regular Health Concerns: You are a 83-year-old male with past medical history of hypertension managed with diet who presented with abdominal pain. Your workup was significant for pancreatitis, with a lipase level too high to read. We did imaging of your stomach to rule out any vascular causes as well as any biliary colic which would cause this. You were given aggressive IV fluid resuscitation, and your pancreatitis is resolving. We have ruled out the major causes of pancreatitis, and I believe that this is spontaneous/idiopathic in nature.I would like for you to be careful with your diet for the next few days. I would recommend a diet high in bananas, rice, applesauce, toast Plan of Treatment: B.R.A.T. Diet as described above for a few days Drink plenty of water Print Language: Romanian Patient Instructions: Pancreatitis Acute Dc Stand Alone Forms: PCP List
[2024-01-26 11:39] VITALS: O2SAT 96
[2024-01-26] MEDS: HYDROcod/ACETAM 5/325 MG TABLET PO PRN (12:07)
== END 2024-01-26 14:45 | disposition home or self-care (01) ==
LOC: MS2 07:49 → ED 07:49
PROVIDERS: ADMIT Nurse Practitioner Acute Care; ATTEND Nurse Practitioner Acute Care
DX: I10 Essential (primary) hypertension; K85.90 Acute pancreatitis without necrosis or infection, unspecified